=== PATIENT | male | born 1980 | race Hispanic/Latino ===

== ENCOUNTER 2018-08-03 23:56 | Emergency (ER) | payer OTHER ==
[2018-08-04] MEDS ORDERED: PANTOPRAZOLE SODIUM 40 MG TABLET.DR PO ONE (00:28)
[2018-08-04] MEDS ORDERED: FAMOTIDINE 20MG TAB 20 MG TAB ONE (00:28)
[2018-08-04] MEDS ORDERED: ONDANSETRON ODT 4 MG TAB ONE (00:29)
[2018-08-04] MEDS ORDERED: LIDOCAINE HCL 2% VISCOUS 15 ML UDCUP ONE (00:58)
[2018-08-04] MEDS ORDERED: MAG HYDROX/AL HYDROX/SIMETH ES 30 ML SUSP UDCUP ONE (00:59)
== END 2018-08-04 01:20 | disposition home or self-care (01) ==
LOC: EDH 23:56
DX: R10.13 Epigastric pain (principal); K21.9 Gastro-esophageal reflux disease without esophagitis